=== PATIENT | male | born 1975 | race African-American/Black ===

== ENCOUNTER 2018-07-30 03:58 | Emergency (ER) | payer OTHER ==
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
[2018-07-30] MEDS ORDERED: ISOVUE-370 76%-LOCM 1 ML ONE (12:58)
== END 2018-07-30 05:03 | disposition home or self-care (01) ==
LOC: ERS 03:58
DX: S30.1XXA Contusion of abdominal wall, initial encounter (principal); I11.0 Hypertensive heart disease with heart failure; I50.9 Heart failure, unspecified; Z79.899 Other long term (current) drug therapy; V49.9XXA Car occupant (driver) (passenger) injured in unspecified traffic accident, initial encounter
CPT/HCPCS: 71260; 74177; 93005; G0390; Q9966